=== PATIENT | male | born 1960 | race African-American/Black ===

== ENCOUNTER 2025-09-15 13:49 | Emergency (ER) | payer MEDICARE, MEDICAID ==
[~2025-09-15] VITALS: Ht 180.3 cm; Wt 80.0 kg
[2025-09-15 13:52] VITALS: BP 118/76; PULSE 81; RESP 18; TEMP 98.8; O2SAT 98
[2025-09-15] MEDS ORDERED: IBUPROFEN 600MG TABLET PO ONE (15:00)
[2025-09-15] MEDS: LIDOCAINE HCL/EPINEPHRINE 1%-EPI 1:100,000 20ML VIAL INFIL ONE (16:08)
[2025-09-15] MEDS: LIDOCAINE HCL 1% 20ML VIAL INFIL ONE (16:08)
== END 2025-09-15 17:09 | disposition left against medical advice (07) ==
LOC: ER 13:49
DX: S01.01XA Laceration without foreign body of scalp, initial encounter (principal); S09.90XA Unspecified injury of head, initial encounter; W22.8XXA Striking against or struck by other objects, initial encounter; Y93.89 Activity, other specified; Y92.89 Other specified places as the place of occurrence of the external cause; Y99.8 Other external cause status
CPT/HCPCS: 12001; 99283